=== PATIENT | male | born 1990 ===

== ENCOUNTER 2017-01-04 13:29 | Emergency (ER) | payer SELFPAY ==
--- NOTE | 2017-01-04 15:24 | UC ---
Back Pain HPI - HPI Summary HPI Summary: The patient comes in today for: 1. Lower back pain: Onset: Initially, the pain was in 2011. He has had pain since. However, he comes in today due to a worsening of the pain 4 days ago. Palliative/provocative: Sitting back with his feet up helps. Rotation to either side makes it worse as does bending forward. Aspirin and ibuprofen helps "a little." Carrying things makes it worse. Quality: Burning, and sharp at times. Region: Lower back. Severity: 4/10 now, after work it is more of a 6/10 Time: Constant. Associated symptoms: Bowel/bladder incontinence: NOne. Numbness or weakness: None. Coughing/sneezing: Coughing will make it worse. Fevers: None. Unexpected weight loss: None. Recent injury: None. Previous treatment: The physician he has seen for this has retired 2 years ago. He had a lower back x-ray about a year ago. He does not know of the result. Home treatment: He has been taking aspirin (325?) 4/day, and ibuprofen 200 mg--4 pills a day. Patient takes OTC Prilosec daily for stomach upset. He also states that he was on Ultram in the past and it did not help. * - History of Current Complaint Chief Complaint: UCBackPain Stated Complaint: BACK PAIN Time Seen by Provider: 01/04/17 15:17 Hx Obtained From: Patient - Allergies/Home Medications Allergies/Adverse Reactions: Allergies Allergy/AdvReac Type Severity Reaction Status Date / Time No Known Allergies Allergy Verified 01/04/17 15:05 Home Medications: Home Medications Acetaminophen [Acetaminophen Extra Stren] 2 tab PO TID PRN 01/04/17 [History Confirmed 01/04/17] Ibuprofen TAB* [Advil TAB*] 2 tab PO TID PRN 01/04/17 [History Confirmed ] PMH/Surg Hx/FS Hx/Imm Hx Previously Healthy: No Endocrine History Of: Denies: Diabetes, Thyroid Disease, Hyperthyroidism, Hypothyroidism, Dyslipidemia Cardiovascular History Of: Denies: Cardiac Disorders, Hypertension, Pacemaker/ICD, Myocardial Infarction , Congestive Heart Failure, Atrial Fibrillation, Deep Vein Thrombosis, Bleeding Disorders Respiratory History Of: Denies: COPD, Asthma, Bronchitis, Pneumonia, Pulmonary Embolism GI/ History Of: Denies: Gastroesophageal Reflux, Ulcer, Gastrointestinal Bleed, Gall Bladder Disease, Kidney Stones, Diverticulitis, Renal Disease, Urosepsis Neurological History Of: Denies: TIA, CVA, Dementia, Seizures, Migraine Psychological History Of: Denies: Anxiety, Depression, Bipolar Disorder, Schizophrenia, Post Traumatic Stress Disorder Cancer History Of: Denies: Lung Cancer, Colorectal Cancer, Breast Cancer, Prostate Cancer, Cervical Cancer Other History Of: Anticoagulant Therapy - He take aspirin for pain. Negative For: HIV, Hepatitis B, Hepatitis C - Surgical History Surgical History: Yes Surgery Procedure, Year, and Place: LEFT KNEE SURGERY 2009 - INFECTED KNEE. - Family History Known Family History: Positive: Cardiac Disease, Hypertension - Social History Occupation: Employed Full-time Alcohol Use: Occasionally Substance Use Type: None Smoking Status (MU): Current Every Day Smoker Type: Smokeless Tobacco Length of Time of Smoking/Using Tobacco: 14+ YEARS Review of Systems Constitutional: Negative Skin: Negative Eyes: Negative ENT: Negative Respiratory: Negative Cardiovascular: Negative Gastrointestinal: Negative Genitourinary: Negative Musculoskeletal: Arthralgia, Myalgia All Other Systems Reviewed And Are Negative: Yes Physical Exam Triage Information Reviewed: Yes Appearance: Well-Appearing, No Pain Distress, Well-Nourished Vital Signs: Initial Vital Signs Temp 99.8 F 01/04/17 15:08 Pulse 65 01/04/17 15:08 Resp 16 01/04/17 15:08 BP 127/70 01/04/17 15:08 Pulse Ox 99 01/04/17 15:08 Vital Signs Reviewed: Yes Eyes: Positive: Conjunctiva Clear. Negative: Discharge ENT: Positive: Hearing grossly normal. Negative: Pharyngeal erythema, Nasal congestion, Nasal drainage, TM bulging, TM dull, TM red, Tonsillar swelling, Tonsillar exudate Dental: Negative: Gross Decay/Caries @, Dental Fracture @ Neck: Positive: Supple, Nontender, No Lymphadenopathy. Negative: Nuchal Rigidity Respiratory: Positive: Lungs clear, No respiratory distress, No accessory muscle use. Negative: Crackles, Wheezing Cardiovascular: Positive: RRR, No Murmur Abdomen Description: Positive: Nontender, No Organomegaly, Soft. Negative: Distended, Guarding Musculoskeletal: Positive: Strength Intact, ROM Intact, Other: - Back: He has no psychomotor slowing or guarding. There was minimal tenderness over the right and left paraspinous musculature--but there was tenderness to palpation of the upper sacrum on the right and left. He has no SLR and the DTR were 2+/2 x 2 for the patellar and 1+/2 x 2 for the Achilles. There was no tenderness to palpation of the piriformis. Neurological: Positive: Alert, Muscle Tone Normal Psychological: Positive: Normal Response To Family, Age Appropriate Behavior, Consolable Skin: Negative: rashes, breakdown Back Pain Course/Dx - Differential Dx/Diagnosis Provider Diagnoses: Lower back pain (strain). Discharge - Discharge Plan Condition: Stable Disposition: HOME Patient Education Materials: Low Back Strain (ED) Forms: *Work Release Referrals: Janet BERNARD,[facility] [Primary Care Provider] - 1 Week (Please see your primary care provider next week to see how well you are doing. If you don't have a primary care provider, please contact the physician referral phone line to get one. If you are not able to get in timely, you can come back to see us.)
== END 2017-01-04 16:15 | disposition home or self-care (01) ==
LOC: UCEAST 13:29
DX: M54.5 Low back pain (principal); F17.290 Nicotine dependence, other tobacco product, uncomplicated
CPT/HCPCS: 99202; G0463